=== PATIENT | female | born 1955 | race Two or more races ===

== ENCOUNTER 2025-03-21 21:50 | Emergency (ER) | payer MEDICARE, OTHER, SELFPAY ==
[2025-03-21 21:54] VITALS: BMI 24.2
[2025-03-21 22:21] VITALS: BP 122/83; PULSE 96; RESP 18; TEMP 36.8; O2SAT 99
--- NOTE | 2025-03-21 22:31 | XR_ITS ---
Examination: CT cervical spine without contrast 2-D sagittal reconstructions 2-D coronal reconstructions 3-D reconstructions. Exam date and time: March 21, 2025, 10:51 p.m. INDICATIONS: Patient fell 2 hours ago with injury to the neck, neck pain CTDI:vol (mGy) 11.7 DLP: (mGycm) 249 Technique: Multiple 2 mm axial sections of the cervical spine have been obtained. The coronal and sagittal reconstructions have been obtained. 3-D reconstructions have been obtained. Low dose protocols were performed. One or more of the following dose reduction techniques were used; automated exposure control, adjustment of the mA and/or KV according to patient size, use of iterative reconstruction technique. Findings: Axial sections demonstrate intact base of the skull. C1 exhibit satisfactory relationship to the odontoid. No acute cervical vertebral body fracture seen. Alignment posterior spinous processes satisfactory. Impression: No acute cervical fracture. Numerous pulmonary nodules in the upper lung zones, please see the CT chest report March 23, 2023
--- NOTE | 2025-03-21 22:31 | XR_ITS ---
Examination: CT brain head without contrast. 2-D sagittal coronal reconstructions Date and time of exam: March 21, 2025, 10:50 p.m. INDICATIONS: Patient fell 2 hours ago with injury to the head, head pain CTDI: vol (mGy): 44.1 DLP: (mGycm): 814 Technique: Multiple CT axial sections of the brain have been obtained, 5 mm slice thickness. Contrast has not been administered. 2-D sagittal, coronal reconstructions have been obtained Low dose protocols were performed. One or more of the following dose reduction techniques were used; automated exposure control, adjustment of the mA and/or KV according to patient size, use of iterative reconstruction technique. Findings: No significant ventricular enlargement. Right posterior scalp hematoma Intra-axial or extra-axial hemorrhage density is not seen. No mass effect or midline shift Basal cisterns are not remarkable. Fourth ventricle is midline. Cranial vault intact. Impression: Negative for acute hemorrhage, mass effect or midline shift
--- NOTE | 2025-03-21 23:34 | PD.EDHEAD ---
ED Head Injury RME/HPI General Chief complaint: Fall Stated complaint: FALL, HEAD INJURY, LACERATION Time Seen by Provider: 03/21/25 22:31 Arrival date/time: 03/21/25 21:50 70F with history of DM presents to ED for evaluation after she slipped in bathroom and hit the back of her head. Patient denies LOC. Patient is UTD on tetanus. Limitations: no limitations Related Data Home Medications ?Medication ?Instructions ?Recorded ?Confirmed atorvastatin 40 mg tablet 40 mg PO QDAY 11/19/22 11/19/22 blood sugar diagnostic (FreeStyle 11/19/22 11/19/22 Lite Strips) ergocalciferol (vitamin D2) 1,250 1,250 mcg PO QWEEK 11/19/22 11/19/22 mcg (50,000 unit) capsule folic acid 1 mg tablet 1 mg PO QDAY 11/19/22 11/19/22 glipizide 5 mg tablet 5 mg PO BIDWM 11/19/22 11/19/22 ibuprofen 800 mg tablet 800 mg PO TID PRN Pain 11/19/22 11/19/22 lisinopril 20 mg tablet 20 mg PO QDAY 11/19/22 11/19/22 metformin 1,000 mg tablet 1,000 mg PO BIDWM 11/19/22 11/19/22 Previous Rx's ?Medication ?Instructions ?Recorded fluconazole 200 mg tablet 400 mg (2 x 200 mg) PO QDAY #30 11/20/22 (Diflucan) tabs levofloxacin 750 mg tablet 750 mg PO QDAY #3 tabs 11/20/22 Allergies Allergy/AdvReac Type Severity Reaction Status Date / Time No Known Allergies Allergy Verified 03/21/25 21:54 Review of Systems Review of Systems Systems Reviewed: All systems reviewed, normal except as documented Integumentary/Breasts Skin/Breast: Reports as per HPI and Reports skin pain Past Medical History Past Medical History CARDIAC: Positive Hypertension; Negative Cardiac Disorders or Congestive Heart Failure RESPIRATORY: Negative Chronic Obstructive Pulmonary Disease (COPD) or Asthma GENITOURINARY: Negative Renal Disease MUSCULOSKELETAL: Positive Rheumatoid Arthritis ENDOCRINE: Positive Diabetes Mellitus Type 2; Negative Diabetes Mellitus Type 1 HEMATOLOGIC: Negative Sickle Cell Disease Social History SMOKING STATUS: Never smoker SUBSTANCE USE: does not use ED Exam General Limitations: Present no limitations General appearance: Present alert and in no apparent distress Expanded Head Exam Head exam physical: Present abrasion (R posterior scalp) and contusion Neck Neck exam: Present normal inspection, full ROM and trachea midline Chest Chest inspection: Present normal inspection and symmetric chest wall rise Neurological Exam Neurological exam: Present alert and oriented X3 Psychiatric Psychiatric exam: Present normal affect and normal mood Skin Skin exam: Present warm, dry, intact and normal color Course Quality Measures none Orders Category Date Time Status Wound Care NOW Care 03/21/25 22:[address] cervical spine wo con Stat Exams 03/21/25 22:[address] head/brain wo con Stat Exams 03/21/25 22:31 Completed Vital Signs Vital signs: Vital Signs Temperature 98.3 F 03/21/25 22:21 Pulse Rate 96 03/21/25 22:21 Respiratory Rate 18 03/21/25 22:21 Blood Pressure 122/83 03/21/25 22:21 Pulse Oximetry (%) 99 03/21/25 22:21 Oxygen Delivery Method Room Air 03/21/25 22:21 O2 at 99% on RA and WNLs Head Injury MDM Narrative MDM Narrative:: 70F with history of DM presents to ED for evaluation after she slipped in bathroom and hit the back of her head. Patient denies LOC. Patient is UTD on tetanus. Physical exam reveals R posterior scalp abrasion, as well as surrounding swelling. No other gross head trauma. Speech normal. Patient is afebrile, calm, and alert. Wound cleaned. CT unremarkable. Patient data External records reviewed:: [facility] previous records Clinical information provided by:: patient Social determinants that could affect healthcare access:: none Patient has the following chronic illnesses:: none How is presenting disease/condition affected by chronic disease/condition?: no chronic disease Evaluation data The following diagnostics were reviewed and interpreted by me:: radiology exam(s) Lab and/or radiology exams considered but not ordered:: ordered Interpretation Summary: above Medications / Prescriptions Medications or Prescriptions considered but not ordered:: not ordered Medication administrations:: n/a Consultations Consultation(s) initiated? (list below): No Diagnosis Differential diagnosis head injury: concussion without loss of consciousness, epidural hematoma, closed head injury, subarachnoid hematoma, postconcussion syndrome, subdural hematoma and other (scalp hematoma) Most likely diagnosis given after review of the tests above:: scalp hematoma and CHI Admission Indicated Admission indicated?: not indicated Admission Request Was there a request for admission?: No Disposition Plan Disposition Plan: Discharge Discharge Attestation Discharge Attestation: The patient and all family members were given an opportunity to ask questions and understood the discharge instructions. Discharge instructions specifically effects, indications for sooner follow up or return to the emergency department, and the expected course of current diagnosis. Patient condition: Stable Discharge Plan Plan Patient Disposition: HOME (Self Care) Discharge Disposition comment: Stable Prescriptions/Referrals Prescriptions/Med Rec: No Action atorvastatin 40 mg tablet 40 mg PO QDAY Patient Comments: TAKE 1 TABLET BY MOUTH EVERY DAY ibuprofen 800 mg tablet 800 mg PO TID PRN (Reason: Pain) Patient Comments: TAKE 1 TABLET BY MOUTH UP TO 3 TIMES A DAY NEEDED FOR PAIN WITH FOOD. lisinopril 20 mg tablet 20 mg PO QDAY Patient Comments: TAKE 1 TABLET BY MOUTH EVERY DAY (DME) FreeStyle Lite Strips Strip Patient Comments: USE TO TEST DAILY metformin 1,000 mg tablet 1,000 mg PO BIDWM Patient Comments: TAKE 1 TABLET BY MOUTH TWICE A DAY WITH MEALS folic acid 1 mg tablet 1 mg PO QDAY Patient Comments: TAKE 1 TABLET BY MOUTH EVERY DAY ergocalciferol (vitamin D2) 1,250 mcg (50,000 unit) capsule 1,250 mcg PO QWEEK Patient Comments: TAKE 1 CAPSULE BY MOUTH ONE TIME PER WEEK glipizide 5 mg tablet 5 mg PO BIDWM Patient Comments: TAKE 1 TABLET BY MOUTH TWICE A DAY BEFORE MEALS fluconazole [Diflucan] 200 mg tablet 400 mg PO QDAY Qty: 30 0RF levofloxacin 750 mg tablet 750 mg PO QDAY Qty: 3 0RF Problem List Clinical Impression: CHI (closed head injury), Contusion of scalp Patient/Caregiver Discharge Instructions Education Materials: ED Head Injury (Adult) Additional Instructions: Please follow-up with PCP within 24-48 hours and return immediately if symptoms worsen. Print Language: Burkinan Stand Alone Forms: Patient Portal Info Letter FRED/MONIK Supervising Physician FRED/MONIK Supervising Physician: Dr. Kennedy
== END 2025-03-22 04:16 | disposition home or self-care (01) ==
PROVIDERS: Emergency Provider Emergency Medicine
DX: S00.03XA Contusion of scalp, initial encounter (principal); S00.01XA Abrasion of scalp, initial encounter; S19.9XXA Unspecified injury of neck, initial encounter; W01.0XXA Fall on same level from slipping, tripping and stumbling without subsequent striking against object, initial encounter
CPT/HCPCS: 70450; 72125; 99282